=== PATIENT | male | born 1960 | race Caucasian/White ===

== ENCOUNTER → 2019-02-27 | Outpatient (CLI) | payer MEDICARE, OTHER ==
[~2019-02-27] MED LIST: ATOR40TA28 PO; BUPR300T53 PO; CLOP75TA3 PO; TRAZ-220 PO; WARF2 PO
== END | disposition home or self-care (01) ==
LOC: RADPV 14:55
PROVIDERS: ATTEND Internal Medicine Cardiovascular Disease
DX: M16.0 Bilateral primary osteoarthritis of hip (principal); I25.10 Atherosclerotic heart disease of native coronary artery without angina pectoris; I73.9 Peripheral vascular disease, unspecified
CPT/HCPCS: 73521